=== PATIENT | female | born 1925 | race Caucasian/White ===

== ENCOUNTER → 2017-01-16 | Outpatient (CLI) | payer MEDICARE, BC ==
[~2017-01-16] MED LIST: ANTIVERT 25MG25 MG PO; ASPIR-LOW81 MG PO; ASPIRIN 32325 MG/TAB PO; ASPIRIN 81M81 MG/TA2 PO; ATORVASTATIN PO; CARDIZEM CD 18180 MG PO; CITRACAL + D 311 TAB PO; DILTIAZEM PO; FOSAMAX PLUS D1 TAB PO; LEVOXYL0.025 MG PO; LISINOPRIL10 MG PO; LORATADINE10 MG PO; LORTAB 5/500 501 TAB; LUNESTA 1MG TAB1 MG; MACROBID 1100 MG/CAP PO; MULTIPLE VITAMI1 TAB PO; MVI PO; PRAVACHOL 20MG20 MG PO; THYROX PO; TOPROL XL 25MG25 MG PO; VITAMIN D3400 IU PO
== END ==
LOC: MC.RAD 08:53
DX: N63 Unspecified lump in breast (principal)

== ENCOUNTER 2017-03-14 12:41 | Emergency (ER) | payer OTHER, MEDICARE, BC ==
[~2017-03-14] VITALS: Ht 149.9 cm; Wt 41.8 kg
[~2017-03-14 12:41] MED LIST changes: -LEVOXYL0.025 MG PO; -MACROBID 1100 MG/CAP PO; -TOPROL XL 25MG25 MG PO
[2017-03-14 12:44] VITALS: TEMP 97.9
[2017-03-14] MEDS ORDERED: LEVOXYL0.025 MG PO (13:12)
[2017-03-14] MEDS ORDERED: TOPROL XL 25MG25 MG PO (13:12)
[2017-03-14 13:31] LABS: BASO # 0.1 (0.0-0.2); EOS # 0.2 (0.0-0.7); EOS % 1.8 % (0-4.0); GRAN # 7.3 (1.4-6.5); GRAN % 76.6 % (42.2-75.2); HEMATOCRIT 41.5 % (37.0-47.0); LYMPH # 1.2 (1.2-3.4); LYMPH % 12.3 % (20.0-51.0); MEAN CELL VOLUME 92 fl (80.0-100.0); MEAN CORPUSCULAR HEMOGLOBIN 31 pg (27.0-31.0); MEAN CORPUSCULAR HGB CONC 34 g/dl (33.0-37.0); MEAN PLATELET VOLUME 8.2 fl (7.4-10.4); MONO # 0.8 (0.1-0.6); MONO % 7.8 % (1.7-9.3); PLATELET COUNT 406 K/mm3 (130-400); RED BLOOD COUNT 4.53 M/mm3 (4.10-5.30); REDCELL DISTRIBUTION WIDTH-CV 13.2 % (11.5-14.5); WHITE BLOOD COUNT 9.6 K/mm3 (4.8-10.8)
[2017-03-14 13:35] LABS: HYALINE CAST >12 /lpf; PH 5 (5-8); SQUAMOUS EPITHELIAL 0-2 /hpf; URINE APPEARANCE Hazy; URINE BACTERIA None Seen /hpf; URINE BILIRUBIN Negative (NEGATIVE); URINE BLOOD Negative (NEGATIVE); URINE COLOR Yellow; URINE GLUCOSE Negative (NEGATIVE); URINE KETONE Negative (NEGATIVE); URINE RBC 0-2 /hpf; URINE UROBILINOGEN Negative (NEGATIVE)
[2017-03-14 13:47] LABS: ADJUSTED CALCIUM 9.2 mg/dL (8.4-10.2); ALANINE AMINOTRANSFERASE 21 U/L (9-52); ALBUMIN 4.2 gm/dL (3.5-5.0); ALKALINE PHOSPHATASE 80 U/L (50-136); ANION GAP 11 mmol/L (7-16); BILIRUBIN,TOTAL 0.4 mg/dL (0.0-1.0); BLOOD UREA NITROGEN 24 mg/dL (7-17); CALCIUM 9.4 mg/dL (8.4-10.2); CARBON DIOXIDE 25 mmol/L (22-30); CHLORIDE 101 mmol/L (98-107); CREATININE, serum 0.81 mg/dL (0.52-1.25); GLUCOSE 104 mg/dL (74-106); POTASSIUM 4.8 mmol/L (3.4-5.0); SODIUM 137 mmol/L (137-145); TOTAL PROTEIN 7.5 gm/dL (6.4-8.2)
[2017-03-14 13:55] LABS: B-TYPE NATRIURETIC PEPTIDE 1470 pg/mL (0-450)
[2017-03-14 14:03] LABS: TROPONIN-I < 0.012 ng/mL (0.000-0.034)
[2017-03-14] MEDS ORDERED: MACROBID 1100 MG/CAP PO (14:25)
[2017-03-14 14:32] VITALS: BP 141/73; PULSE 78
== END 2017-03-14 14:35 | disposition home or self-care (01) ==
LOC: COL.ER 12:41
PROVIDERS: Emergency Medicine
DX: N39.0 Urinary tract infection, site not specified (principal); R42 Dizziness and giddiness; R07.9 Chest pain, unspecified; R06.02 Shortness of breath